=== PATIENT | female | born 1970 | race African-American/Black ===

== ENCOUNTER 2022-12-26 19:13 | Emergency (ER) | payer MEDICARE, OTHER ==
[~2022-12-26] VITALS: Ht 144.8 cm; Wt 56.2 kg
[2022-12-26 20:24] VITALS: O2SAT 100
[2022-12-26 23:10] VITALS: BP 156/82; PULSE 89; RESP 17; TEMP 99.2
[2022-12-26] MEDS ORDERED: IBUP-2028 MT (23:15)
[2022-12-26] MEDS ORDERED: ACETAMINOPHEN 325MG TABLET PO ONE (23:15)
== END 2022-12-26 23:22 | disposition home or self-care (01) ==
LOC: ER 19:13
DX: S46.912A Strain of unspecified muscle, fascia and tendon at shoulder and upper arm level, left arm, initial encounter (principal); W18.39XA Other fall on same level, initial encounter; Y93.89 Activity, other specified; Y92.89 Other specified places as the place of occurrence of the external cause; Y99.8 Other external cause status; I10 Essential (primary) hypertension
CPT/HCPCS: 73030; 99283